=== PATIENT | female | born 1985 | race Caucasian/White ===

== ENCOUNTER 2023-06-25 15:24 | Outpatient (CLI) | payer OTHER, SELFPAY ==
--- NOTE | ~2023-06-25 | MM_ITS ---
EXAMINATION: MM screening denise BI w paco HISTORY: Screening mammogram. Family history of breast cancer. TECHNIQUE: Craniocaudal and mediolateral oblique 3-D tomosynthesis images were obtained and synthetic 2-D images were generated. CAD analysis was submitted and interpreted. COMPARISON: No prior mammogram is available for comparison at this institution. BREAST PARENCHYMAL COMPOSITION: The breasts are extremely dense, which lowers the sensitivity of mamm ography. FINDINGS: There is suggestion of bilateral partially obscured masses. The extremely dense stroma limi ts the sensitivity of the examination. Bilateral complete breast ultrasound examination is recommende d. IMPRESSION: 1. Possible bilateral partially obscured masses and extremely dense stroma 2. Bilateral complete breast ultrasound examination is recommended BI-RADS Category 0: Incomplete: Needs additional imaging evaluation. Reviewed, dictated and finalized at [facility].
== END 2023-06-25 15:25 | disposition home or self-care (01) ==
LOC: ANHIMG 15:26
PROVIDERS: Visit Provider Obstetrics & Gynecology
DX: Z12.31 Encounter for screening mammogram for malignant neoplasm of breast (principal); R92.8 Other abnormal and inconclusive findings on diagnostic imaging of breast
CPT/HCPCS: 77063; 77067

== ENCOUNTER 2023-08-10 10:23 | Outpatient (CLI) | payer OTHER, MEDICAID, SELFPAY ==
--- NOTE | ~2023-08-10 | US_ITS ---
US breast BI complete DATE: 08/10/2023 11:44 INDICATION: 06/25/2023 screening mammogram showed possible bilateral partially obscured masses and ext remely dense fibroglandular stroma which lowers the sensitivity of the mammographic examination TECHNIQUE: Bilateral complete breast ultrasound examination including all 4 quadrants and subareolar area of each breast COMPARISON: 06/25/2023 bilateral screening mammogram FINDINGS: There are multiple bilateral cysts, some simple, some complicated and some septated, larges t on the right a multi septated cyst measuring up to approximately 12 x 16 mm, the largest on the lef t a multi septated cyst at 1:00 7 cm from the nipple measuring up to 13 x 23.5 mm. No suspicious mass or suspicious shadowing of either breast is detected. IMPRESSION: BI-RADS Category 2: Benign findings Recommendation: Routine annual mammographic screening; consider supplemental ultrasound or MR examina tion as clinically appropriate due to the dense stroma Reviewed, dictated and finalized at [facility]. Reviewed, dictated and finalized at [facility]. IMPRESSION: BI-RADS Category 2: Benign findings Recommendation: Routine annual mammographic screening; consider supplemental ul trasound or MR examination as clinically appropriate due to the dense stroma
== END 2023-08-10 10:24 | disposition home or self-care (01) ==
PROVIDERS: Visit Provider Obstetrics & Gynecology
DX: N63.0 Unspecified lump in unspecified breast (principal); R92.2 Inconclusive mammogram
CPT/HCPCS: 76641